=== PATIENT | male | born 1980 | race Caucasian/White ===

== ENCOUNTER → 2020-05-22 | Outpatient (CLI) | payer OTHER ==
--- NOTE | 2020-05-24 14:35 | SLEEPCENT ---
NOCTURNAL POLYSOMNOGRAPHY DATE: 05/22/2020 ORDERED BY: DERECK Manuel Nocturnal polysomnography was performed for evaluation of sleep physiology. 7 hours and 55 minutes of data were reviewed. There were 358.5 minutes of sleep identified. Sleep latency was normal at 12 minutes. REM latency was mildly delayed at 152 minutes. Sleep architecture was good with two REM cycles. Overall sleep efficiency was 77.4%. The electrocardiogram showed a sinus rhythm with an average heart rate of 58 beats per minute. EEG showed essentially normal waveforms for wake and sleep. There were 28 respiratory events identified of 10 seconds in duration or greater for an apnea-hypopnea index at the upper limit of normal 4.7. The events were not stage related, but they were more frequent in the supine posture. Arousals from respiratory events were noted 2.7 times per hour when arousals from snoring were included. There was little activity in the limb leads. Oxygen saturations remained 90% plus throughout the study. IMPRESSION: Normal nocturnal polysomnography with snoring and respiratory patterning in the supine position. RECOMMENDATION: Sleep position retraining for avoidance of the supine posture should be helpful.
== END ==
LOC: M SLEEP 20:00
PROVIDERS: ATTEND Physician Assistant Medical
DX: G47.33 Obstructive sleep apnea (adult) (pediatric) (principal)

== ENCOUNTER → 2021-04-11 | Outpatient (CLI) | payer OTHER | LOC: M WHC 15:13 | PROVIDERS: ATTEND Physician Assistant Medical | DX: N63.23 Unspecified lump in the left breast, lower outer quadrant (principal) | CPT/HCPCS: 76642; 77066; G0279 ==

== ENCOUNTER → 2021-05-13 | Outpatient (CLI) | payer OTHER ==
[~2021-05-13] MED LIST: PROHANCE 279.3MG/ML 15ML VIAL As Ordered ONE; PROHANCE 279.3MG/ML 5ML VIAL As Ordered ONE
== END ==
LOC: M RAD 12:49
PROVIDERS: ATTEND Student in an Organized Health Care Education/Training Program
DX: R56.9 Unspecified convulsions (principal)
CPT/HCPCS: 70553; A9576

== ENCOUNTER → 2022-04-19 | Outpatient (REF) | LOC: M PLAIMG 13:50 | PROVIDERS: ATTEND Internal Medicine | DX: M19.90 Unspecified osteoarthritis, unspecified site (principal) ==

== ENCOUNTER → 2022-09-14 | Outpatient (CLI) | payer OTHER | LOC: M RAD 11:40 | PROVIDERS: ATTEND Physician Assistant Medical | DX: M54.50 Low back pain, unspecified (principal) ==

== ENCOUNTER → 2023-01-16 | Outpatient (CLI) | payer OTHER | LOC: M WHC 13:41 | PROVIDERS: ATTEND Physician Assistant Medical | DX: N63.0 Unspecified lump in unspecified breast (principal) | CPT/HCPCS: 76642; 77066; G0279 ==